=== PATIENT | male | born 1930 | race Caucasian/White ===

== ENCOUNTER 2019-07-16 16:32 | Inpatient (IN) | payer OTHER, MEDICARE ==
[2019-07-16] MEDS ORDERED: Sodium Chloride 0.9% 10 ML Syringe FLUSH PRN (16:54)
[2019-07-16] MEDS ORDERED: methylPREDNISolone Sodium Succinate 125 MG/2 ML SDV IVPUSH ONE (16:55)
[2019-07-16] MEDS ORDERED: Albuterol/Ipratropium 3.0-0.5 MG/3 ML Neb Soln NEB ONE ×2 (16:55→19:03)
--- NOTE | 2019-07-16 16:57 | EDM.PDOC ---
ED HPI GENERAL MEDICAL PROBLEM - General Chief Complaint: Respiratory Problem Stated Complaint: SOB Time Seen by Provider: 07/16/19 16:50 Source of Information: Reports: Patient History Limitations: Reports: No Limitations - History of Present Illness INITIAL COMMENTS - FREE TEXT/NARRATIVE: The patient presents with shortness of breath and a cough. He says this all started last night. He is coughing up some white phlegm at times. He has a history of asthma but he does not take anything and he has not had trouble with it for years. He has no fever or chest pain. He has no abdominal pain, nausea or vomiting. He has no swelling or pain in his feet. When he was brought back his oxygen saturations were 63%. He was put on oxygen and his saturations did come up. Onset: Gradual Duration: Day(s): (last night) Severity: Moderate Improves with: Reports: None Worsens with: Reports: None Associated Symptoms: Reports: Cough, Shortness of Breath. Denies: Chest Pain, Fever/Chills, Headaches, Nausea/Vomiting - Related Data Allergies Allergy/AdvReac Type Severity Reaction Status Date / Time No Known Allergies Allergy Verified 07/16/19 16:44 Past Medical History HEENT History: Reports: Hard of Hearing, Impaired Vision Cardiovascular History: Reports: Hypertension Respiratory History: Reports: Asthma Gastrointestinal History: Reports: GERD Other Musculoskeletal History: weakness Endocrine/Metabolic History: Reports: Diabetes, Type II Oncologic (Cancer) History: Reports: Colon - Past Surgical History GI Surgical History: Reports: Colonoscopy Other GI Surgeries/Procedures: colon cancer 2009 Social & Family History - Family History Family Medical History: Noncontributory - Tobacco Use Smoking Status *Q: Never Smoker - Caffeine Use Caffeine Use: Reports: Coffee - Recreational Drug Use Recreational Drug Use: No ED ROS GENERAL - Review of Systems Review Of Systems: See Below Constitutional: Reports: No Symptoms HEENT: Reports: No Symptoms Respiratory: Reports: Shortness of Breath, Cough Cardiovascular: Reports: No Symptoms Endocrine: Reports: No Symptoms GI/Abdominal: Reports: No Symptoms : Reports: No Symptoms Musculoskeletal: Reports: No Symptoms ED EXAM, GENERAL - Physical Exam Exam: See Below Exam Limited By: No Limitations General Appearance: Alert, No Apparent Distress Ears: Normal External Exam Nose: Normal Inspection Head: Atraumatic, Normocephalic Neck: Normal Inspection Respiratory/Chest: No Respiratory Distress, Decreased Breath Sounds, Wheezing Cardiovascular: Regular Rate, Rhythm, No Edema, No Murmur GI/Abdominal: Soft, Non-Tender, No Organomegaly, No Mass Back Exam: Normal Inspection Extremities: Normal Inspection EKG INTERPRETATION EKG Date: 07/16/19 Time: 18:28 Rhythm: NSR Rate (Beats/Min): 96 [place]: Normal P-Wave: Present QRS: Normal ST-T: Normal QT: Normal EKG Interpretation Comments: Q waves in the anterior leads Course - Vital Signs Last Recorded V/S: Last Vital Signs Temp 99.0 F 07/16/19 16:40 Pulse 111 H 07/16/19 16:40 Resp 25 H 07/16/19 16:40 BP 170/89 H 07/16/19 16:40 Pulse Ox 86 L 07/16/19 19:15 - Orders/Labs/Meds Orders: Active Orders 24 hr Category Date Time Status Cardiac Monitoring [RC] . DIRECTED Care 07/16/19 16:54 Active EKG Documentation Completion [RC] STAT Care 07/16/19 16:54 Active Oxygen Therapy [RC] PRN Care 07/16/19 16:54 Active Peripheral IV Care [RC] . DIRECTED Care 07/16/19 16:54 Active RT Aerosol Therapy [RC] ASDIRECTED Care 07/16/19 16:55 Active RT Aerosol Therapy [RC] ASDIRECTED Care 07/16/19 19:03 Active ABG [BLOOD GAS ARTERIAL] [BG] Stat Lab 07/16/19 19:06 Ordered CULTURE BLOOD [BC] Stat Lab 07/16/19 17:16 Received CULTURE BLOOD [BC] Stat Lab 07/16/19 17:37 Received Sodium Chloride 0.9% [Saline Flush] Med 07/16/19 16:54 Active 10 ml FLUSH ASDIRECTED PRN cefTRIAXone [Rocephin] 2 gm Med 07/16/19 19:15 Active Sodium Chloride 0.9% [Normal Saline] 100 ml IV Q24H Blood Culture x2 Reflex Set [OM.PC] Stat Oth 07/16/19 16:55 Ordered Peripheral IV Insertion Adult [OM.PC] Stat Oth 07/16/19 16:54 Ordered Medication Orders Ceftriaxone Sodium 2 gm/ (Sodium Chloride) 100 mls @ 200 mls/hr IV Q24H CADEN Last Admin: 02/01/20 19:11 Dose: 200 mls/hr Sodium Chloride (Saline Flush) 10 ml FLUSH ASDIRECTED PRN PRN Reason: Keep Vein Open Last Admin: 07/16/19 17:19 Dose: 10 ml Labs: Laboratory Tests 07/16/19 07/16/19 07/16/19 Range/Units 17:16 17:37 17:37 WBC (4.23-9.07) K/mm3 RBC (4.63-6.08) M/mm3 Hgb (13.7-17.5) gm/dl Hct (40.1-51.0) % MCV (79.0-92.2) fl MCH (25.7-32.2) pg MCHC (32.2-35.5) g/dl RDW Std Deviation (35.1-43.9) fL Plt Count (163-337) K/mm3 MPV (9.4-12.3) fl Neut % (Auto) (34.0-67.9) % Lymph % (Auto) (21.8-53.1) % [place] % (Auto) (5.3-12.2) % Eos % (Auto) (0.8-7.0) Baso % (Auto) (0.1-1.2) % Neut # (Auto) (1.78-5.38) K/mm3 Lymph # (Auto) (1.32-3.57) K/mm3 [place] # (Auto) (0.30-0.82) K/mm3 Eos # (Auto) (0.04-0.54) K/mm3 Baso # (Auto) (0.01-0.08) K/mm3 Sodium 137 (136-145) mEq/L Potassium 4.0 (3.5-5.1) mEq/L Chloride 98 (98-107) mEq/L Carbon Dioxide 36 H (21-32) mEq/L Anion Gap 7.0 (5-15) BUN 15 (7-18) mg/dL Creatinine 1.1 (0.7-1.3) mg/dL Est Cr Clr Drug Dosing 50.39 mL/min Estimated GFR (MDRD) > 60 (>60) mL/min BUN/Creatinine Ratio 13.6 L (14-18) Glucose 155 H (83-115) mg/dL Lactic Acid 1.4 (0.4-2.0) mmol/L Calcium 8.7 (8.5-10.1) mg/dL Total Bilirubin 1.1 H (0.2-1.0) mg/dL AST 21 (15-37) U/L ALT 25 (16-63) U/L Alkaline Phosphatase 65 (46-116) U/L Troponin I < 0.017 (0.00-0.056) ng/mL C-Reactive Protein 3.9 H* (<1.0) mg/dL NT-Pro-B Natriuret Pep 421 (0-450) pg/mL Total Protein 8.0 (6.4-8.2) g/dl Albumin 3.7 (3.4-5.0) g/dl Globulin 4.3 gm/dL Albumin/Globulin Ratio 0.9 L (1-2) 07/16/19 Range/Units 18:07 WBC 8.37 (4.23-9.07) K/mm3 RBC 4.60 L (4.63-6.08) M/mm3 Hgb 14.6 (13.7-17.5) gm/dl Hct 44.4 (40.1-51.0) % MCV 96.5 H D (79.0-92.2) fl MCH 31.7 (25.7-32.2) pg MCHC 32.9 (32.2-35.5) g/dl RDW Std Deviation 45.8 H (35.1-43.9) fL Plt Count 232 (163-337) K/mm3 MPV 9.2 L (9.4-12.3) fl Neut % (Auto) 79.3 H (34.0-67.9) % Lymph % (Auto) 12.9 L (21.8-53.1) % [place] % (Auto) 6.5 (5.3-12.2) % Eos % (Auto) 0.5 L (0.8-7.0) Baso % (Auto) 0.4 (0.1-1.2) % Neut # (Auto) 6.65 H (1.78-5.38) K/mm3 Lymph # (Auto) 1.08 L (1.32-3.57) K/mm3 [place] # (Auto) 0.54 (0.30-0.82) K/mm3 Eos # (Auto) 0.04 (0.04-0.54) K/mm3 Baso # (Auto) 0.03 (0.01-0.08) K/mm3 Sodium (136-145) mEq/L Potassium (3.5-5.1) mEq/L Chloride (98-107) mEq/L Carbon Dioxide (21-32) mEq/L Anion Gap (5-15) BUN (7-18) mg/dL Creatinine (0.7-1.3) mg/dL Est Cr Clr Drug Dosing mL/min Estimated GFR (MDRD) (>60) mL/min BUN/Creatinine Ratio (14-18) Glucose (83-115) mg/dL Lactic Acid (0.4-2.0) mmol/L Calcium (8.5-10.1) mg/dL Total Bilirubin (0.2-1.0) mg/dL AST (15-37) U/L ALT (16-63) U/L Alkaline Phosphatase (46-116) U/L Troponin I (0.00-0.056) ng/mL C-Reactive Protein (<1.0) mg/dL NT-Pro-B Natriuret Pep (0-450) pg/mL Total Protein (6.4-8.2) g/dl Albumin (3.4-5.0) g/dl Globulin gm/dL Albumin/Globulin Ratio (1-2) Meds: Medications Generic Name Dose Route Start Last Admin Trade Name Freq PRN Reason Stop Dose Admin Ceftriaxone Sodium 2 gm/ 100 mls @ 200 mls/hr 07/16/19 19:15 07/16/19 19:11 Sodium Chloride IV 200 mls/hr Q24H CADEN Administration Sodium Chloride 10 ml 07/16/19 16:54 07/16/19 17:19 Saline Flush FLUSH 10 ml ASDIRECTED PRN Administration Keep Vein Open Discontinued Medications Generic Name Dose Route Start Last Admin Trade Name Freq PRN Reason Stop Dose Admin Albuterol/Ipratropium 3 ml 07/16/19 16:55 07/16/19 17:04 Duoneb 3.0-0.5 Mg/3 Ml NEB 07/16/19 16:56 3 ml ONETIME ONE Administration Albuterol/Ipratropium 3 ml 07/16/19 19:03 07/16/19 19:14 Duoneb 3.0-0.5 Mg/3 Ml NEB 07/16/19 19:04 3 ml ONETIME ONE Administration Magnesium Sulfate/Dextrose 1 100 mls @ 100 mls/hr 07/16/19 16:56 07/16/19 17: 25 gm/ Premix IV 07/16/19 17:55 100 mls/hr ONETIME ONE Administration Methylprednisolone Sodium Succinate 125 mg 07/16/19 16:55 07/16/19 17:18 Solu-Medrol IVPUSH 07/16/19 16:56 125 mg ONETIME ONE Administration - Re-Assessments/Exams Free Text/Narrative Re-Assessment/Exam: 07/16/19 19:24 I ordered an IV saline lock, oxygen, duoneb, solu-medrol 125mg IV, labs, CXR, EKG, magnesium 1gram IV, blood cultures, lactic acid and rocephin 2 grams IV. His CXR does not show anything acute. His CBC looks good. His EKG shows no acute changes. His glucose is 155. His lactic acid is normal at 1.4. His total bili is elevated at 1.1. His troponin is negative. His CRP is elevated at 3.9. His BNP is normal 07/16/19 19:28 He was doing better. I listened to his lungs again and he has more wheezing and his lungs are tight. I ordered another duoneb and I will get an ABG. I feel he needs to be admitted. I talked with Dr Hi and he agreed to the admission. Departure - Departure Time of Disposition: 19:30 Disposition: Admitted As Inpatient 68 Condition: Serious Clinical Impression: Hypoxia Pneumonia Qualifiers: Pneumonia type: due to unspecified organism Laterality: unspecified laterality Lung location: unspecified part of lung Qualified Code(s): J18.9 - Pneumonia, unspecified organism Asthma exacerbation Qualifiers: Asthma severity: severe Asthma persistence: persistent Qualified Code(s): J45.51 - Severe persistent asthma with (acute) exacerbation - Discharge Information Referrals: Micah Langley MD [Primary Care Provider] - Forms: ED Department Discharge Sepsis Event Note - Evaluation Sepsis Screening Result: Possible Sepsis Risk - Focused Exam Vital Signs: Vital Signs Temp Pulse Resp BP Pulse Ox Pulse Ox 07/16/19 19:15 86 L 07/16/19 17:05 94 L 07/16/19 16:40 99.0 F 111 H 25 H 170/89 H 77 L Date Exam was Performed: 07/16/19 Time Exam was Performed: 19:27 - My Orders Last 24 Hours: My Active Orders 07/16/19 16:54 Cardiac Monitoring [RC] . DIRECTED EKG Documentation Completion [RC] STAT Oxygen Therapy [RC] PRN Peripheral IV Care [RC] . DIRECTED Sodium Chloride 0.9% [Saline Flush] 10 ml FLUSH ASDIRECTED PRN Peripheral IV Insertion Adult [OM.PC] Stat 07/16/19 16:55 RT Aerosol Therapy [RC] ASDIRECTED Blood Culture x2 Reflex Set [OM.PC] Stat 07/16/19 17:16 CULTURE BLOOD [BC] Stat 07/16/19 17:37 CULTURE BLOOD [BC] Stat 07/16/19 19:03 RT Aerosol Therapy [RC] ASDIRECTED 07/16/19 19:06 ABG [BLOOD GAS ARTERIAL] [BG] Stat 07/16/19 19:15 cefTRIAXone [Rocephin] 2 gm Sodium Chloride 0.9% [Normal Saline] 100 ml IV Q24H - Assessment/Plan Last 24 Hours: My Active Orders 07/16/19 16:54 Cardiac Monitoring [RC] . DIRECTED EKG Documentation Completion [RC] STAT Oxygen Therapy [RC] PRN Peripheral IV Care [RC] . DIRECTED Sodium Chloride 0.9% [Saline Flush] 10 ml FLUSH ASDIRECTED PRN Peripheral IV Insertion Adult [OM.PC] Stat 07/16/19 16:55 RT Aerosol Therapy [RC] ASDIRECTED Blood Culture x2 Reflex Set [OM.PC] Stat 07/16/19 17:16 CULTURE BLOOD [BC] Stat 07/16/19 17:37 CULTURE BLOOD [BC] Stat 07/16/19 19:03 RT Aerosol Therapy [RC] ASDIRECTED 07/16/19 19:06 ABG [BLOOD GAS ARTERIAL] [BG] Stat 07/16/19 19:15 cefTRIAXone [Rocephin] 2 gm Sodium Chloride 0.9% [Normal Saline] 100 ml IV Q24H
--- NOTE | 2019-07-16 18:40 | CR ---
Chest: Portable view of the chest was obtained. Comparison: Prior chest x-ray of 03/14/15. Lobulated left hemidiaphragm is seen. Bibasilar lung markings are mildly increased which appear to be chronic. Small nodule compatible with granuloma is seen within the right midlung. No acute parenchymal change is otherwise seen. Bony structures are grossly intact. Heart size is normal. Tortuous thoracic aorta is seen. Impression: 1. Findings as noted above. 2. Nothing acute is appreciated. Diagnostic code #2 Study was dictated in [place] Standard Time
[2019-07-16] MEDS: cefTRIAXone 2 GM in Sodium Chloride 0.9% 100 ML IV SCH (19:11)
--- NOTE | 2019-07-16 22:12 | PCM.HP.2 ---
H&P History of Present Illness - General Date of Service: 07/16/19 Admit Problem/Dx: Admission Diagnosis/Problem Admission Diagnosis/Problem Hypoxia - History of Present Illness Initial Comments - Free Text/Narative: Patient presented to the emergency room with a chief complaint of difficulty breathing. He states that he could not breathe yesterday and started developing a whitish productive cough. He has a history of some kind of reactive airway disease, but has not had any issues for years and is not taking any medication or inhalers for it. He denies any fever or chills. He stopped smoking 20 years ago and had a [id number] history. When he presented to the emergency room he had oxygen saturations of 63%. Denies any chest pain, orthopnea, or PND. He recently had injections in his eye but he does not know the name of the condition. Patient denies any recent weight gain or loss. Denies any close contacts with respiratory infections. In the emergency room chest x-ray showed nothing acute. A lobulated left hemidiaphragm was seen and bibasilar lung markings that are mildly increased which appear to be chronic. Nebulizers and oxygen improved his oxygenation and symptoms. White blood cell count was 8.37 with a C-reactive protein of 3.9. proBNP was normal at 421. Lactic acid was 1.4. Patient was treated with Rocephin and transferred to the floor on 4 L nasal cannula. - Related Data Allergies/Adverse Reactions: Allergies Allergy/AdvReac Type Severity Reaction Status Date / Time No Known Allergies Allergy Verified 07/16/19 20:38 Home Medications: Home Meds Aspirin [Adult Low Dose Aspirin EC] 81 mg PO DAILY 07/16/19 [History] Cholecalciferol (Vitamin D3) [Vitamin D3] 2,000 unit PO DAILY 07/16/19 [History] Cyanocobalamin (Vitamin B-12) [Vitamin B-12] 2,500 mcg PO DAILY 07/16/19 [ History] Gabapentin [Neurontin] 300 mg PO TID 07/16/19 [History] Losartan [Cozaar] 100 mg PO DAILY 07/16/19 [History] Omeprazole 20 mg PO DAILY 07/16/19 [History] hydroCHLOROthiazide [Hydrochlorothiazide] 25 mg PO DAILY 07/16/19 [History] metFORMIN [Glucophage] 500 mg PO BIDMEALS 07/16/19 [History] Propylene Glycol/Peg 400 [Lubricant 0.3%-0.4% Eye Drops] 1 drop EYEBOTH BID 08/04 [History] Past Medical History HEENT History: Reports: Hard of Hearing, Impaired Vision, Other (See Below) Other HEENT History: wears glasses and has bilateral hearing aides, had a shot last weak in the left eye to help improve his vision. Cardiovascular History: Reports: Hypertension Respiratory History: Reports: Asthma Gastrointestinal History: Reports: GERD Other Musculoskeletal History: weakness Endocrine/Metabolic History: Reports: Diabetes, Type II Oncologic (Cancer) History: Reports: Colon, Other (See Below) Other Oncologic History: left cheek had skin cancer removed from Dermatologic History: Reports: Other (See Below) Other Dermatologic History: had skin cancer removed to his left cheek - Infectious Disease History Infectious Disease History: Reports: Influenza Other Infectious Disease History: pt states he doesn't remember if he has ever had the measles or chicken pox, etc. - Past Surgical History HEENT Surgical History: Reports: None Cardiovascular Surgical History: Reports: None GI Surgical History: Reports: Colonoscopy Other GI Surgeries/Procedures: colon cancer 2010 Endocrine Surgical History: Reports: None Social & Family History - Family History Family Medical History: Noncontributory - Tobacco Use Smoking Status *Q: Never Smoker - Caffeine Use Caffeine Use: Reports: Coffee - Recreational Drug Use Recreational Drug Use: No H&P Review of Systems - Review of Systems: Review Of Systems: Comprehensive ROS is negative, except as noted in HPI. Exam - Exam Exam: See Below - Vital Signs Vital Signs: Last Vital Signs Temp 99.0 F 07/16/19 16:40 Pulse 111 H 07/16/19 16:40 Resp 25 H 07/16/19 16:40 BP 170/89 H 07/16/19 16:40 Pulse Ox 86 L 07/16/19 19:15 Weight: 230 lb 4.8 oz - Exam General: Alert, Oriented, 4 HEENT: Conjunctiva Clear, Mucosa Moist & [place]. No: Hearing Intact (Hard of hearing) Neck: Supple, Trachea Midline, 2 Lungs: Normal Respiratory Effort (Increased respiratory rate and mild increase in effort), Wheezing (Bibasilar ) Cardiovascular: Regular Rate, Regular Rhythm GI/Abdominal Exam: Normal Bowel Sounds, Soft, Non-Tender, No Organomegaly, No Distention Back Exam: Normal Inspection Extremities: Normal Inspection, Normal Range of Motion, Non-Tender, No Pedal Edema Skin: Warm, Dry, Intact Neurological: Cranial Nerves Intact Neuro Extensive - Mental Status: Alert, Oriented x3, Normal Mood/Affect, Normal Cognition, Memory Intact Neuro Extensive - Motor, Sensory, Reflexes: CN II-XII Intact Psychiatric: Alert, Normal Affect, Normal Mood - Patient Data Lab Results Last 24 hrs: Laboratory Results - last 24 hr 07/16/19 07/16/19 07/16/19 Range/Units 17:16 17:37 17:37 WBC (4.23-9.07) K/mm3 RBC (4.63-6.08) M/mm3 Hgb (13.7-17.5) gm/dl Hct (40.1-51.0) % MCV (79.0-92.2) fl MCH (25.7-32.2) pg MCHC (32.2-35.5) g/dl RDW Std Deviation (35.1-43.9) fL Plt Count (163-337) K/mm3 MPV (9.4-12.3) fl Neut % (Auto) (34.0-67.9) % Lymph % (Auto) (21.8-53.1) % [place] % (Auto) (5.3-12.2) % Eos % (Auto) (0.8-7.0) Baso % (Auto) (0.1-1.2) % Neut # (Auto) (1.78-5.38) K/mm3 Lymph # (Auto) (1.32-3.57) K/mm3 [place] # (Auto) (0.30-0.82) K/mm3 Eos # (Auto) (0.04-0.54) K/mm3 Baso # (Auto) (0.01-0.08) K/mm3 Puncture Site ABG pH (7.35-7.45) ABG pCO2 (35.0-45.0) mmHg ABG pO2 (80.0-100.0) mmHg ABG HCO3 (22.0-26.0) meq/L ABG O2 Saturation (96.0-97.0) % ABG Base Excess (-2-2.0) A-a Gradient mmHg O2 Delivery Device Oxygen Flow Rate FiO2 (21.00-100.00) % Sodium 137 (136-145) mEq/L Potassium 4.0 (3.5-5.1) mEq/L Chloride 98 (98-107) mEq/L Carbon Dioxide 36 H (21-32) mEq/L Anion Gap 7.0 (5-15) BUN 15 (7-18) mg/dL Creatinine 1.1 (0.7-1.3) mg/dL Est Cr Clr Drug Dosing 50.39 mL/min Estimated GFR (MDRD) > 60 (>60) mL/min BUN/Creatinine Ratio 13.6 L (14-18) Glucose 155 H (83-115) mg/dL Lactic Acid 1.4 (0.4-2.0) mmol/L Calcium 8.7 (8.5-10.1) mg/dL Total Bilirubin 1.1 H (0.2-1.0) mg/dL AST 21 (15-37) U/L ALT 25 (16-63) U/L Alkaline Phosphatase 65 (46-116) U/L Troponin I < 0.017 (0.00-0.056) ng/mL C-Reactive Protein 3.9 H* (<1.0) mg/dL NT-Pro-B Natriuret Pep 421 (0-450) pg/mL Total Protein 8.0 (6.4-8.2) g/dl Albumin 3.7 (3.4-5.0) g/dl Globulin 4.3 gm/dL Albumin/Globulin Ratio 0.9 L (1-2) 07/16/19 07/16/19 Range/Units 18:07 19:25 WBC 8.37 (4.23-9.07) K/mm3 RBC 4.60 L (4.63-6.08) M/mm3 Hgb 14.6 (13.7-17.5) gm/dl Hct 44.4 (40.1-51.0) % MCV 96.5 H D (79.0-92.2) fl MCH 31.7 (25.7-32.2) pg MCHC 32.9 (32.2-35.5) g/dl RDW Std Deviation 45.8 H (35.1-43.9) fL Plt Count 232 (163-337) K/mm3 MPV 9.2 L (9.4-12.3) fl Neut % (Auto) 79.3 H (34.0-67.9) % Lymph % (Auto) 12.9 L (21.8-53.1) % [place] % (Auto) 6.5 (5.3-12.2) % Eos % (Auto) 0.5 L (0.8-7.0) Baso % (Auto) 0.4 (0.1-1.2) % Neut # (Auto) 6.65 H (1.78-5.38) K/mm3 Lymph # (Auto) 1.08 L (1.32-3.57) K/mm3 [place] # (Auto) 0.54 (0.30-0.82) K/mm3 Eos # (Auto) 0.04 (0.04-0.54) K/mm3 Baso # (Auto) 0.03 (0.01-0.08) K/mm3 Puncture Site Lt radial ABG pH 7.40 (7.35-7.45) ABG pCO2 57.3 H (35.0-45.0) mmHg ABG pO2 54.0 L (80.0-100.0) mmHg ABG HCO3 34.5 H (22.0-26.0) meq/L ABG O2 Saturation 87.3 L (96.0-97.0) % ABG Base Excess 8.0 H (-2-2.0) A-a Gradient 103 mmHg O2 Delivery Device Cannula Oxygen Flow Rate 3.0 FiO2 32.00 (21.00-100.00) % Sodium (136-145) mEq/L Potassium (3.5-5.1) mEq/L Chloride (98-107) mEq/L Carbon Dioxide (21-32) mEq/L Anion Gap (5-15) BUN (7-18) mg/dL Creatinine (0.7-1.3) mg/dL Est Cr Clr Drug Dosing mL/min Estimated GFR (MDRD) (>60) mL/min BUN/Creatinine Ratio (14-18) Glucose (83-115) mg/dL Lactic Acid (0.4-2.0) mmol/L Calcium (8.5-10.1) mg/dL Total Bilirubin (0.2-1.0) mg/dL AST (15-37) U/L ALT (16-63) U/L Alkaline Phosphatase (46-116) U/L Troponin I (0.00-0.056) ng/mL C-Reactive Protein (<1.0) mg/dL NT-Pro-B Natriuret Pep (0-450) pg/mL Total Protein (6.4-8.2) g/dl Albumin (3.4-5.0) g/dl Globulin gm/dL Albumin/Globulin Ratio (1-2) Result Diagrams: 07/17/19 04:35 07/17/19 04:35 [place] Results Last 24 hrs: Microbiology 07/16/19 17:30 Influenza Type A Antigen Screen - Final Nasopharyngeal Swab NEGATIVE INFLUENZA A VIRUS AG REFERENCE RANGE: NEGATIVE Influenza Type B Antigen Screen - Final NEGATIVE INFLUENZA B VIRUS AG REFERENCE RANGE: NEGATIVE Sepsis Event Note - Evaluation Sepsis Screening Result: Possible Sepsis Risk - Focused Exam Vital Signs: Vital Signs Temp Pulse Resp BP Pulse Ox Pulse Ox 07/16/19 19:15 86 L 07/16/19 17:05 94 L 07/16/19 16:40 99.0 F 111 H 25 H 170/89 H 77 L Date Exam was Performed: 07/17/19 Time Exam was Performed: 13:52 Problem List Initiated/Reviewed/Updated: Yes Orders Last 24hrs: Active Orders 24 hr Category Date Time Status Admission Status [Patient Status] [ADT] Routine ADT 07/16/19 19:36 Active Cardiac Monitoring [RC] . DIRECTED Care 07/16/19 16:54 Active Oxygen Therapy [RC] PRN Care 07/16/19 16:54 Active Peripheral IV Care [RC] . DIRECTED Care 07/16/19 16:54 Active CULTURE BLOOD [BC] Stat Lab 07/16/19 17:16 Received CULTURE BLOOD [BC] Stat Lab 07/16/19 17:37 Received Sodium Chloride 0.9% [Saline Flush] Med 07/16/19 16:54 Active 10 ml FLUSH ASDIRECTED PRN cefTRIAXone [Rocephin] 2 gm Med 07/16/19 19:15 Active Sodium Chloride 0.9% [Normal Saline] 100 ml IV Q24H Blood Culture x2 Reflex Set [OM.PC] Stat Oth 07/16/19 16:55 Ordered Peripheral IV Insertion Adult [OM.PC] Stat Oth 07/16/19 16:54 Ordered Medication Orders Ceftriaxone Sodium 2 gm/ (Sodium Chloride) 100 mls @ 200 mls/hr IV Q24H [facility] [place] Last Admin: 07/16/19 19:11 Dose: 200 mls/hr Sodium Chloride (Saline Flush) 10 ml FLUSH ASDIRECTED PRN PRN Reason: Keep Vein Open Last Admin: 07/16/19 17:19 Dose: 10 ml Assessment/Plan Comment:: Assessment * Bronchitis with reactive airway disease and hypoxemia * Started on Rocephin in the emergency room. * Nothing acute on chest x-ray. * Normal CBC and lactic acid * Blood cultures drawn in the emergency room * Given Solu-Medrol 125 mg IV in the ER * Quit smoking 20 years ago, [id number] history prior * On 4 L nasal cannula * Type 2 diabetes * Controlled on Glucophage * No current hemoglobin A1c available * Hypertension * Blood pressure elevated on admission at 170/89 * Home meds: Losartan 100 mg daily and HCTZ 25 mg daily Plan * Admit to medical floor * DuoNeb every 6 hours * Albuterol every 2 hours as needed * Continue ceftriaxone * Start azithromycin * Monitor fingerstick blood sugar 4 times daily * Sliding scale insulin * Stop metformin * Incentive spirometry * FiO2 to keep SPO2 greater than 90% * Continue other home meds * VTE prophylaxis with Lovenox * CODE STATUS: Full code * Length of stay 2 to 3 days - Mortality Measure Prognosis:: Good
[2019-07-16] MEDS ORDERED: Acetaminophen 325 MG Tab PO PRN (22:14)
[2019-07-16] MEDS ORDERED: Albuterol 0.083% 2.5 MG/3 ML Neb Soln NEB PRN (22:14)
[2019-07-16] MEDS ORDERED: Azithromycin 500 MG in Sodium Chloride 0.9% 250 ML IV ONE (22:17)
[2019-07-16] MEDS ORDERED: Melatonin 3 MG Tab PO PRN (22:40)
[2019-07-16] MEDS: Albuterol/Ipratropium 3.0-0.5 MG/3 ML Neb Soln NEB SCH (22:42)
[2019-07-17] MEDS: Albuterol/Ipratropium 3.0-0.5 MG/3 ML Neb Soln NEB SCH ×8 (03:04→22:17)
[2019-07-17] MEDS: Pantoprazole 40 MG Tab.CR PO SCH ×2 (05:35→07:03)
[2019-07-17] MEDS: predniSONE 20 MG Tab PO SCH ×2 (05:35→07:03)
[2019-07-17] MEDS: Insulin Lispro 100 Units/ML 3 ML Vial SUBCUT SCH ×4 (08:28→22:10)
[2019-07-17] MEDS: Gabapentin 300 MG Cap PO SCH ×3 (08:36→22:09)
[2019-07-17] MEDS: Aspirin 81 MG Tab.EC PO SCH (08:36)
[2019-07-17] MEDS: Hydrochlorothiazide 25 MG Tab PO SCH (08:36)
[2019-07-17] MEDS: Losartan 100 MG Tab PO SCH (08:37)
[2019-07-17] MEDS: Insulin Glarg,Human.Rec.Analog 100 Unit/ML SUBCUT SCH (08:39)
[2019-07-17] MEDS: Enoxaparin 40 MG/0.4 ML Syringe SUBCUT SCH (08:40)
[2019-07-17] MEDS ORDERED: Carboxymethylcellulose Sodium 1% Ophth Gel 15 ML Bottle EYEBOTH ONE (11:30)
--- NOTE | 2019-07-17 14:13 | PCM.PN ---
- General Info Date of Service: 07/17/19 Admission Dx/Problem (Free Text): Admission Diagnosis/Problem Admission Diagnosis/Problem Hypoxia Subjective Update: Patient states he is feeling much better. Denies any fever or chills. - Review of Systems General: Reports: No Symptoms HEENT: Reports: No Symptoms Pulmonary: Reports: Shortness of Breath Cardiovascular: Reports: No Symptoms Gastrointestinal: Reports: No Symptoms Musculoskeletal: Reports: No Symptoms - Patient Data Vitals - Most Recent: Last Vital Signs Temp 97.9 F 07/17/19 08:40 Pulse 91 07/17/19 08:40 Resp 18 07/17/19 08:40 BP 139/73 07/17/19 08:40 Pulse Ox 93 L 07/17/19 09:25 Weight - Most Recent: 230 lb 4.8 oz I&O - Last 24 Hours: Intake & Output 07/16/19 07/17/19 07/17/19 22:59 06:59 14:59 Intake Total 410 343 Output Total 250 Balance 160 343 Lab Results Last 24 Hours: Laboratory Results - last 24 hr 07/16/19 07/16/19 07/16/19 Range/Units 17:16 17:37 17:37 WBC (4.23-9.07) K/mm3 RBC (4.63-6.08) M/mm3 Hgb (13.7-17.5) gm/dl Hct (40.1-51.0) % MCV (79.0-92.2) fl MCH (25.7-32.2) pg MCHC (32.2-35.5) g/dl RDW Std Deviation (35.1-43.9) fL Plt Count (163-337) K/mm3 MPV (9.4-12.3) fl Neut % (Auto) (34.0-67.9) % Lymph % (Auto) (21.8-53.1) % [place] % (Auto) (5.3-12.2) % Eos % (Auto) (0.8-7.0) Baso % (Auto) (0.1-1.2) % Neut # (Auto) (1.78-5.38) K/mm3 Lymph # (Auto) (1.32-3.57) K/mm3 [place] # (Auto) (0.30-0.82) K/mm3 Eos # (Auto) (0.04-0.54) K/mm3 Baso # (Auto) (0.01-0.08) K/mm3 Manual Slide Review Puncture Site ABG pH (7.35-7.45) ABG pCO2 (35.0-45.0) mmHg ABG pO2 (80.0-100.0) mmHg ABG HCO3 (22.0-26.0) meq/L ABG O2 Saturation (96.0-97.0) % ABG Base Excess (-2-2.0) A-a Gradient mmHg O2 Delivery Device Oxygen Flow Rate FiO2 (21.00-100.00) % Sodium 137 (136-145) mEq/L Potassium 4.0 (3.5-5.1) mEq/L Chloride 98 (98-107) mEq/L Carbon Dioxide 36 H (21-32) mEq/L Anion Gap 7.0 (5-15) BUN 15 (7-18) mg/dL Creatinine 1.1 (0.7-1.3) mg/dL Est Cr Clr Drug Dosing 50.39 mL/min Estimated GFR (MDRD) > 60 (>60) mL/min BUN/Creatinine Ratio 13.6 L (14-18) Glucose 155 H (83-115) mg/dL POC Glucose (83-110) mg/dL Lactic Acid 1.4 (0.4-2.0) mmol/L Calcium 8.7 (8.5-10.1) mg/dL Magnesium (1.8-2.4) mg/dl Total Bilirubin 1.1 H (0.2-1.0) mg/dL AST 21 (15-37) U/L ALT 25 (16-63) U/L Alkaline Phosphatase 65 (46-116) U/L Troponin I < 0.017 (0.00-0.056) ng/mL C-Reactive Protein 3.9 H* (<1.0) mg/dL NT-Pro-B Natriuret Pep 421 (0-450) pg/mL Total Protein 8.0 (6.4-8.2) g/dl Albumin 3.7 (3.4-5.0) g/dl Globulin 4.3 gm/dL Albumin/Globulin Ratio 0.9 L (1-2) 07/16/19 07/16/19 07/17/19 Range/Units 18:07 19:25 04:35 WBC 8.37 5.96 (4.23-9.07) K/mm3 RBC 4.60 L 4.46 L (4.63-6.08) M/mm3 Hgb 14.6 14.1 (13.7-17.5) gm/dl Hct 44.4 43.0 (40.1-51.0) % MCV 96.5 H D 96.4 H (79.0-92.2) fl MCH 31.7 31.6 (25.7-32.2) pg MCHC 32.9 32.8 (32.2-35.5) g/dl RDW Std Deviation 45.8 H 45.6 H (35.1-43.9) fL Plt Count 232 231 (163-337) K/mm3 MPV 9.2 L 9.7 (9.4-12.3) fl Neut % (Auto) 79.3 H 88.7 H (34.0-67.9) % Lymph % (Auto) 12.9 L 7.4 L (21.8-53.1) % [place] % (Auto) 6.5 3.2 L (5.3-12.2) % Eos % (Auto) 0.5 L 0 L (0.8-7.0) Baso % (Auto) 0.4 0.2 (0.1-1.2) % Neut # (Auto) 6.65 H 5.29 (1.78-5.38) K/mm3 Lymph # (Auto) 1.08 L 0.44 L (1.32-3.57) K/mm3 [place] # (Auto) 0.54 0.19 L (0.30-0.82) K/mm3 Eos # (Auto) 0.04 0.00 L (0.04-0.54) K/mm3 Baso # (Auto) 0.03 0.01 (0.01-0.08) K/mm3 Manual Slide Review Abnormal smear Puncture Site Lt radial ABG pH 7.40 (7.35-7.45) ABG pCO2 57.3 H (35.0-45.0) mmHg ABG pO2 54.0 L (80.0-100.0) mmHg ABG HCO3 34.5 H (22.0-26.0) meq/L ABG O2 Saturation 87.3 L (96.0-97.0) % ABG Base Excess 8.0 H (-2-2.0) A-a Gradient 103 mmHg O2 Delivery Device Cannula Oxygen Flow Rate 3.0 FiO2 32.00 (21.00-100.00) % Sodium (136-145) mEq/L Potassium (3.5-5.1) mEq/L Chloride (98-107) mEq/L Carbon Dioxide (21-32) mEq/L Anion Gap (5-15) BUN (7-18) mg/dL Creatinine (0.7-1.3) mg/dL Est Cr Clr Drug Dosing mL/min Estimated GFR (MDRD) (>60) mL/min BUN/Creatinine Ratio (14-18) Glucose (83-115) mg/dL POC Glucose (83-110) mg/dL Lactic Acid (0.4-2.0) mmol/L Calcium (8.5-10.1) mg/dL Magnesium (1.8-2.4) mg/dl Total Bilirubin (0.2-1.0) mg/dL AST (15-37) U/L ALT (16-63) U/L Alkaline Phosphatase (46-116) U/L Troponin I (0.00-0.056) ng/mL C-Reactive Protein (<1.0) mg/dL NT-Pro-B Natriuret Pep (0-450) pg/mL Total Protein (6.4-8.2) g/dl Albumin (3.4-5.0) g/dl Globulin gm/dL Albumin/Globulin Ratio (1-2) 07/17/19 07/17/19 Range/Units 04:35 06:33 WBC (4.23-9.07) K/mm3 RBC (4.63-6.08) M/mm3 Hgb (13.7-17.5) gm/dl Hct (40.1-51.0) % MCV (79.0-92.2) fl MCH (25.7-32.2) pg MCHC (32.2-35.5) g/dl RDW Std Deviation (35.1-43.9) fL Plt Count (163-337) K/mm3 MPV (9.4-12.3) fl Neut % (Auto) (34.0-67.9) % Lymph % (Auto) (21.8-53.1) % [place] % (Auto) (5.3-12.2) % Eos % (Auto) (0.8-7.0) Baso % (Auto) (0.1-1.2) % Neut # (Auto) (1.78-5.38) K/mm3 Lymph # (Auto) (1.32-3.57) K/mm3 [place] # (Auto) (0.30-0.82) K/mm3 Eos # (Auto) (0.04-0.54) K/mm3 Baso # (Auto) (0.01-0.08) K/mm3 Manual Slide Review Puncture Site ABG pH (7.35-7.45) ABG pCO2 (35.0-45.0) mmHg ABG pO2 (80.0-100.0) mmHg ABG HCO3 (22.0-26.0) meq/L ABG O2 Saturation (96.0-97.0) % ABG Base Excess (-2-2.0) A-a Gradient mmHg O2 Delivery Device Oxygen Flow Rate FiO2 (21.00-100.00) % Sodium 136 (136-145) mEq/L Potassium 4.0 (3.5-5.1) mEq/L Chloride 97 L (98-107) mEq/L Carbon Dioxide 31 (21-32) mEq/L Anion Gap 12.0 (5-15) BUN 20 H (7-18) mg/dL Creatinine 1.3 (0.7-1.3) mg/dL Est Cr Clr Drug Dosing 42.64 mL/min Estimated GFR (MDRD) 52 (>60) mL/min BUN/Creatinine Ratio 15.4 (14-18) Glucose 299 H (83-115) mg/dL POC Glucose 245 H (83-110) mg/dL Lactic Acid (0.4-2.0) mmol/L Calcium 8.4 L (8.5-10.1) mg/dL Magnesium 2.2 (1.8-2.4) mg/dl Total Bilirubin 0.5 (0.2-1.0) mg/dL AST 16 (15-37) U/L ALT 27 (16-63) U/L Alkaline Phosphatase 60 (46-116) U/L Troponin I (0.00-0.056) ng/mL C-Reactive Protein 4.9 H* (<1.0) mg/dL NT-Pro-B Natriuret Pep (0-450) pg/mL Total Protein 7.6 (6.4-8.2) g/dl Albumin 3.3 L (3.4-5.0) g/dl Globulin 4.3 gm/dL Albumin/Globulin Ratio 0.8 L (1-2) Mykel Results Last 24 Hours: Microbiology 07/16/19 17:30 Influenza Type A Antigen Screen - Final Nasopharyngeal Swab NEGATIVE INFLUENZA A VIRUS AG REFERENCE RANGE: NEGATIVE Influenza Type B Antigen Screen - Final NEGATIVE INFLUENZA B VIRUS AG REFERENCE RANGE: NEGATIVE Med Orders - Current: Current Medications Acetaminophen (Tylenol) 650 mg PO Q4H PRN PRN Reason: Pain (Mild 1-3)/fever Albuterol (Proventil Neb Soln) 2.5 mg NEB Q2H PRN PRN Reason: Shortness Of Breath/wheezing Last Admin: 07/17/19 00:27 Dose: 2.5 mg Albuterol/Ipratropium (Duoneb 3.0-0.5 Mg/3 Ml) 3 ml NEB Q6HRRT [facility] Last Admin: 07/17/19 09:24 Dose: 3 ml Artificial Tears (Refresh Liquigel 1%) 0 ml EYEBOTH BID [facility] Aspirin (Halfprin) 81 mg PO DAILY [facility] Last Admin: 07/17/19 08:36 Dose: 81 mg Enoxaparin Sodium (Lovenox) 40 mg SUBCUT DAILY [facility] Last Admin: 07/17/19 08:40 Dose: 40 mg Gabapentin (Neurontin) 300 mg PO TID [facility] Last Admin: 07/17/19 08:36 Dose: 300 mg Hydrochlorothiazide (Hydrochlorothiazide) 25 mg PO DAILY [facility] Last Admin: 07/17/19 08:36 Dose: 25 mg Ceftriaxone Sodium 2 gm/ (Sodium Chloride) 100 mls @ 200 mls/hr IV Q24H [facility] Last Admin: 07/16/19 19:11 Dose: 200 mls/hr Azithromycin 250 mg/ Sodium (Chloride) 250 mls @ 250 mls/hr IV Q24H [facility] Insulin Glargine (Lantus) 10 unit SUBCUT DAILY [facility] Last Admin: 07/17/19 08:39 Dose: 10 units Insulin Human Lispro (Humalog) 0 unit SUBCUT QIDACANDBED [facility]; Protocol Last Admin: 07/17/19 12:56 Dose: 2 units Losartan Potassium (Cozaar) 100 mg PO DAILY [facility] Last Admin: 07/17/19 08:37 Dose: 100 mg Melatonin (Melatonin) 9 mg PO BEDTIME PRN PRN Reason: Insomnia Pantoprazole Sodium (Protonix) 40 mg PO DAILY@0700 [facility] Last Admin: 07/17/19 07:03 Dose: Not Given Prednisone (Prednisone) 40 mg PO WITHBREAKFAST [facility] Last Admin: 07/17/19 07:03 Dose: Not Given Sodium Chloride (Saline Flush) 10 ml FLUSH ASDIRECTED PRN PRN Reason: Keep Vein Open Last Admin: 07/16/19 17:19 Dose: 10 ml Discontinued Medications Albuterol/Ipratropium (Duoneb 3.0-0.5 Mg/3 Ml) 3 ml NEB ONETIME ONE Stop: 07/16/19 16:56 Last Admin: 07/16/19 17:04 Dose: 3 ml Albuterol/Ipratropium (Duoneb 3.0-0.5 Mg/3 Ml) 3 ml NEB ONETIME ONE Stop: 07/16/19 19:04 Last Admin: 07/16/19 19:14 Dose: 3 ml Albuterol/Ipratropium (Duoneb 3.0-0.5 Mg/3 Ml) 3 ml NEB Q6H [facility] Last Admin: 07/17/19 11:30 Dose: Not Given Artificial Tears (Refresh Liquigel 1%) 0 ml EYEBOTH ONETIME ONE Stop: 07/17/19 11:31 Last Admin: 07/17/19 11:43 Dose: 1 drop Magnesium Sulfate/Dextrose 1 (gm/ Premix) 100 mls @ 100 mls/hr IV ONETIME ONE Stop: 07/16/19 17:55 Last Admin: 07/16/19 17:25 Dose: 100 mls/hr Azithromycin 500 mg/ Sodium (Chloride) 250 mls @ 250 mls/hr IV ONETIME ONE Stop: 07/16/19 23:16 Last Admin: 07/16/19 22:39 Dose: 250 mls/hr Methylprednisolone Sodium Succinate (Solu-Medrol) 125 mg IVPUSH ONETIME ONE Stop: 07/16/19 16:56 Last Admin: 07/16/19 17:18 Dose: 125 mg Non-Formulary Medication (Propylene Glycol/Peg 400 [Lubricant 0.3%-0.4% Eye Drops]) 15 ml EYEBOTH BID [facility] Last Admin: 07/17/19 11:31 Dose: Not Given - Exam Quality Assessment: Supplemental Oxygen General: Alert, Oriented HEENT: Pupils Equal, Mucous Membr. Moist/[place] Neck: Supple Lungs: Clear to Auscultation, Normal Respiratory Effort Cardiovascular: Regular Rate, Regular Rhythm GI/Abdominal Exam: Normal Bowel Sounds, Soft, Non-Tender, No Distention Back Exam: Normal Inspection Extremities: Normal Inspection, Normal Range of Motion, Non-Tender, No Pedal Edema, Normal Capillary Refill Skin: Warm, Dry, Intact Neurological: No New Focal Deficit Psy/Mental Status: Alert, Normal Affect, Normal Mood Sepsis Event Note - Evaluation Sepsis Screening Result: Possible Sepsis Risk - Focused Exam Vital Signs: Vital Signs Temp Pulse Resp BP Pulse Ox Pulse Ox 07/17/19 09:25 93 L 07/17/19 08:40 97.9 F 91 18 139/73 93 L 07/17/19 08:37 139/73 07/17/19 06:50 96 07/17/19 06:36 98 92 L 07/17/19 04:37 97.7 F 89 22 H 108/66 89 L 07/17/19 03:04 91 L Date Exam was Performed: 07/17/19 Time Exam was Performed: 14:09 - Problem List Review Problem List Initiated/Reviewed/Updated: Yes - My Orders Last 24 Hours: My Active Orders 07/16/19 22:13 Blood Glucose Check, Bedside [RC] QIDACANDBED 07/16/19 22:14 Up With Assistance [RC] ASDIRECTED VTE/DVT Education [RC] PER UNIT ROUTINE Vital Signs [RC] Q4HR Acetaminophen [Tylenol] 650 mg PO Q4H PRN Albuterol [Proventil Neb Soln] 2.5 mg NEB Q2H PRN Resuscitation Status Routine 07/16/19 22:16 RT Aerosol Therapy [RC] ASDIRECTED 07/16/19 22:40 Melatonin 9 mg PO BEDTIME PRN 07/16/19 23:27 Oxygen Therapy Adult [Oxygen Therapy] [RC] ASDIRECTED 07/17/19 00:50 RESPIRATORY PANEL Routine 07/17/19 03:00 Albuterol/Ipratropium [DuoNeb 3.0-0.5 MG/3 ML] 3 ml NEB Q6HRRT 07/17/19 07:00 Insulin Lispro [HumaLOG] See Protocol SUBCUT QIDACANDBED Pantoprazole [ProTONIX] 40 mg PO DAILY@0700 predniSONE 40 mg PO WITHBREAKFAST 07/17/19 09:00 Aspirin [Halfprin] 81 mg PO DAILY Enoxaparin [Lovenox] 40 mg SUBCUT DAILY Gabapentin [Neurontin] 300 mg PO TID Insulin Glarg,Human.Rec.Analog [LantUS] 10 unit SUBCUT DAILY Losartan [Cozaar] 100 mg PO DAILY hydroCHLOROthiazide 25 mg PO DAILY 07/17/19 21:00 Azithromycin [Zithromax] 250 mg Sodium Chloride 0.9% [Normal Saline] 250 ml IV Q24H Carboxymethylcellulose Sodium [Refresh Liquigel 1%] 0 ml EYEBOTH BID 07/17/19 Breakfast Consistent Carbohydrate Diet [DIET] 07/18/19 05:11 C-REACTIVE PROTEIN [CHEM] AM CBC WITH AUTO DIFF [HEME] AM COMPREHENSIVE METABOLIC PN,CMP [CHEM] AM GLYCOSYLATED HEMOGLOBIN,HGBA1C [CHEM] AM MAGNESIUM [CHEM] AM - Plan Plan:: Assessment * Bronchitis with reactive airway disease and hypoxemia * Rocephin and azithromycin * Nothing acute on chest x-ray. * Normal CBC and lactic acid * Blood cultures pending * Prednisone 40 mg daily * Quit smoking 20 years ago, [id number] history prior * On 4 L nasal cannula * Type 2 diabetes * Morning blood sugar was 299. This is likely secondary to steroids. * Holding metformin * Hypertension * Blood pressure elevated on admission at 170/89 * Home meds: Losartan 100 mg daily and HCTZ 25 mg daily, Plan * Admit to medical floor * DuoNeb every 6 hours * Albuterol every 2 hours as needed * Continue ceftriaxone and azithromycin * Prednisone 40 mg daily * Start Lantus 10 units daily * Monitor fingerstick blood sugar 4 times daily * Sliding scale insulin * Incentive spirometry continued * FiO2 to keep SPO2 greater than 90% * VTE prophylaxis with Lovenox * CODE STATUS: Full code * Length of stay 2 to 3 days
[2019-07-17] MEDS ORDERED: Azithromycin 250 MG in Sodium Chloride 0.9% 250 ML IV SCH (21:00)
[2019-07-17] MEDS ORDERED: Azithromycin 500 MG Vial ONE (21:53)
[2019-07-17] MEDS: cefTRIAXone 2 GM in Sodium Chloride 0.9% 100 ML IV SCH (22:08)
[2019-07-17] MEDS: Carboxymethylcellulose Sodium 1% Ophth Gel 15 ML Bottle EYEBOTH SCH (22:09)
[2019-07-18] MEDS: Albuterol/Ipratropium 3.0-0.5 MG/3 ML Neb Soln NEB SCH ×4 (03:35→20:30)
[2019-07-18] MEDS: predniSONE 20 MG Tab PO SCH (06:56)
[2019-07-18] MEDS: Insulin Lispro 100 Units/ML 3 ML Vial SUBCUT SCH ×4 (06:56→21:01)
[2019-07-18] MEDS: Pantoprazole 40 MG Tab.CR PO SCH (06:57)
[2019-07-18 07:02] LABS: HEMOGLOBIN A1C 6.7 % (4.50-6.20)
[2019-07-18] MEDS: Hydrochlorothiazide 25 MG Tab PO SCH (08:55)
[2019-07-18] MEDS: Aspirin 81 MG Tab.EC PO SCH (08:56)
[2019-07-18] MEDS: Gabapentin 300 MG Cap PO SCH ×3 (08:56→20:52)
[2019-07-18] MEDS: Losartan 100 MG Tab PO SCH (08:57)
[2019-07-18] MEDS: Insulin Glarg,Human.Rec.Analog 100 Unit/ML SUBCUT SCH (08:59)
[2019-07-18] MEDS: Carboxymethylcellulose Sodium 1% Ophth Gel 15 ML Bottle EYEBOTH SCH ×2 (08:59→20:52)
[2019-07-18] MEDS: Enoxaparin 40 MG/0.4 ML Syringe SUBCUT SCH (09:00)
--- NOTE | 2019-07-18 13:52 | PCM.PN ---
- General Info Date of Service: 07/18/19 Admission Dx/Problem (Free Text): Admission Diagnosis/Problem Admission Diagnosis/Problem Hypoxia Subjective Update: Patient continues to improve. He denies any fever or chills. Continues on 1 L nasal cannula. Functional Status: Reports: Pain Controlled - Review of Systems General: Reports: No Symptoms HEENT: Reports: No Symptoms Pulmonary: Reports: Cough Cardiovascular: Reports: No Symptoms Gastrointestinal: Reports: No Symptoms Musculoskeletal: Reports: No Symptoms - Patient Data Vitals - Most Recent: Last Vital Signs Temp 98.1 F 07/18/19 11:15 Pulse 79 07/18/19 11:15 Resp 24 H 07/18/19 11:15 BP 123/79 07/18/19 11:15 Pulse Ox 95 07/18/19 11:15 Weight - Most Recent: 228 lb 4.8 oz I&O - Last 24 Hours: Intake & Output 07/17/19 07/18/19 07/18/19 22:59 06:59 14:59 Intake Total 440 1250 400 Output Total 750 1100 Balance -310 150 400 Lab Results Last 24 Hours: Laboratory Results - last 24 hr 07/17/19 07/17/19 07/17/19 Range/Units 11:41 18:12 22:04 WBC (4.23-9.07) K/mm3 RBC (4.63-6.08) M/mm3 Hgb (13.7-17.5) gm/dl Hct (40.1-51.0) % MCV (79.0-92.2) fl MCH (25.7-32.2) pg MCHC (32.2-35.5) g/dl RDW Std Deviation (35.1-43.9) fL Plt Count (163-337) K/mm3 MPV (9.4-12.3) fl Neut % (Auto) (34.0-67.9) % Lymph % (Auto) (21.8-53.1) % [place] % (Auto) (5.3-12.2) % Eos % (Auto) (0.8-7.0) Baso % (Auto) (0.1-1.2) % Neut # (Auto) (1.78-5.38) K/mm3 Lymph # (Auto) (1.32-3.57) K/mm3 [place] # (Auto) (0.30-0.82) K/mm3 Eos # (Auto) (0.04-0.54) K/mm3 Baso # (Auto) (0.01-0.08) K/mm3 Manual Slide Review Sodium (136-145) mEq/L Potassium (3.5-5.1) mEq/L Chloride (98-107) mEq/L Carbon Dioxide (21-32) mEq/L Anion Gap (5-15) BUN (7-18) mg/dL Creatinine (0.7-1.3) mg/dL Est Cr Clr Drug Dosing mL/min Estimated GFR (MDRD) (>60) mL/min BUN/Creatinine Ratio (14-18) Glucose (83-115) mg/dL POC Glucose 202 H 230 H 115 H (83-110) mg/dL Hemoglobin A1c (4.50-6.20) % Calcium (8.5-10.1) mg/dL Magnesium (1.8-2.4) mg/dl Total Bilirubin (0.2-1.0) mg/dL AST (15-37) U/L ALT (16-63) U/L Alkaline Phosphatase (46-116) U/L C-Reactive Protein (<1.0) mg/dL Total Protein (6.4-8.2) g/dl Albumin (3.4-5.0) g/dl Globulin gm/dL Albumin/Globulin Ratio (1-2) 07/18/19 07/18/19 07/18/19 Range/Units 05:50 05:50 05:50 WBC 11.63 H (4.23-9.07) K/mm3 RBC 4.48 L (4.63-6.08) M/mm3 Hgb 14.1 (13.7-17.5) gm/dl Hct 43.3 (40.1-51.0) % MCV 96.7 H (79.0-92.2) fl MCH 31.5 (25.7-32.2) pg MCHC 32.6 (32.2-35.5) g/dl RDW Std Deviation 45.1 H (35.1-43.9) fL Plt Count 242 (163-337) K/mm3 MPV 9.8 (9.4-12.3) fl Neut % (Auto) 78.1 H (34.0-67.9) % Lymph % (Auto) 13.4 L (21.8-53.1) % [place] % (Auto) 7.9 (5.3-12.2) % Eos % (Auto) 0.2 L (0.8-7.0) Baso % (Auto) 0.2 (0.1-1.2) % Neut # (Auto) 9.09 H (1.78-5.38) K/mm3 Lymph # (Auto) 1.56 (1.32-3.57) K/mm3 [place] # (Auto) 0.92 H (0.30-0.82) K/mm3 Eos # (Auto) 0.02 L (0.04-0.54) K/mm3 Baso # (Auto) 0.02 (0.01-0.08) K/mm3 Manual Slide Review Abnormal smear Sodium 139 (136-145) mEq/L Potassium 4.0 (3.5-5.1) mEq/L Chloride 100 (98-107) mEq/L Carbon Dioxide 35 H (21-32) mEq/L Anion Gap 8.0 (5-15) BUN 26 H (7-18) mg/dL Creatinine 1.1 (0.7-1.3) mg/dL Est Cr Clr Drug Dosing 50.39 mL/min Estimated GFR (MDRD) > 60 (>60) mL/min BUN/Creatinine Ratio 23.6 H (14-18) Glucose 137 H (83-115) mg/dL POC Glucose (83-110) mg/dL Hemoglobin A1c 6.70 H (4.50-6.20) % Calcium 8.5 (8.5-10.1) mg/dL Magnesium 2.1 (1.8-2.4) mg/dl Total Bilirubin 0.4 (0.2-1.0) mg/dL AST 16 (15-37) U/L ALT 27 (16-63) U/L Alkaline Phosphatase 53 (46-116) U/L C-Reactive Protein 2.7 H* (<1.0) mg/dL Total Protein 7.4 (6.4-8.2) g/dl Albumin 3.2 L (3.4-5.0) g/dl Globulin 4.2 gm/dL Albumin/Globulin Ratio 0.8 L (1-2) 07/18/19 07/18/19 Range/Units 06:56 11:14 WBC (4.23-9.07) K/mm3 RBC (4.63-6.08) M/mm3 Hgb (13.7-17.5) gm/dl Hct (40.1-51.0) % MCV (79.0-92.2) fl MCH (25.7-32.2) pg MCHC (32.2-35.5) g/dl RDW Std Deviation (35.1-43.9) fL Plt Count (163-337) K/mm3 MPV (9.4-12.3) fl Neut % (Auto) (34.0-67.9) % Lymph % (Auto) (21.8-53.1) % [place] % (Auto) (5.3-12.2) % Eos % (Auto) (0.8-7.0) Baso % (Auto) (0.1-1.2) % Neut # (Auto) (1.78-5.38) K/mm3 Lymph # (Auto) (1.32-3.57) K/mm3 [place] # (Auto) (0.30-0.82) K/mm3 Eos # (Auto) (0.04-0.54) K/mm3 Baso # (Auto) (0.01-0.08) K/mm3 Manual Slide Review Sodium (136-145) mEq/L Potassium (3.5-5.1) mEq/L Chloride (98-107) mEq/L Carbon Dioxide (21-32) mEq/L Anion Gap (5-15) BUN (7-18) mg/dL Creatinine (0.7-1.3) mg/dL Est Cr Clr Drug Dosing mL/min Estimated GFR (MDRD) (>60) mL/min BUN/Creatinine Ratio (14-18) Glucose (83-115) mg/dL POC Glucose 126 H 191 H (83-110) mg/dL Hemoglobin A1c (4.50-6.20) % Calcium (8.5-10.1) mg/dL Magnesium (1.8-2.4) mg/dl Total Bilirubin (0.2-1.0) mg/dL AST (15-37) U/L ALT (16-63) U/L Alkaline Phosphatase (46-116) U/L C-Reactive Protein (<1.0) mg/dL Total Protein (6.4-8.2) g/dl Albumin (3.4-5.0) g/dl Globulin gm/dL Albumin/Globulin Ratio (1-2) My[facility] Results Last 24 Hours: Microbiology 07/16/19 17:16 Aerobic Blood Culture - Preliminary Blood - Venous NO GROWTH AFTER 1 DAY Anaerobic Blood Culture - Preliminary NO GROWTH AFTER 1 DAY 07/16/19 17:37 Aerobic Blood Culture - Preliminary Blood - Venous - Lab Draw NO GROWTH AFTER 1 DAY Anaerobic Blood Culture - Preliminary NO GROWTH AFTER 1 DAY Med Orders - Current: Current Medications Acetaminophen (Tylenol) 650 mg PO Q4H PRN PRN Reason: Pain (Mild 1-3)/fever Albuterol (Proventil Neb Soln) 2.5 mg NEB Q2H PRN PRN Reason: Shortness Of Breath/wheezing Last Admin: 07/17/19 00:27 Dose: 2.5 mg Albuterol/Ipratropium (Duoneb 3.0-0.5 Mg/3 Ml) 3 ml NEB Q6HRRT [facility] Last Admin: 07/18/19 08:07 Dose: 3 ml Artificial Tears (Refresh Liquigel 1%) 0 ml EYEBOTH BID [facility] Last Admin: 07/18/19 08:59 Dose: 1 drop Aspirin (Halfprin) 81 mg PO DAILY [facility] Last Admin: 07/18/19 08:56 Dose: 81 mg Enoxaparin Sodium (Lovenox) 40 mg SUBCUT DAILY [facility] Last Admin: 07/18/19 09:00 Dose: 40 mg Gabapentin (Neurontin) 300 mg PO TID [facility] Last Admin: 07/18/19 08:56 Dose: 300 mg Hydrochlorothiazide (Hydrochlorothiazide) 25 mg PO DAILY [facility] Last Admin: 07/18/19 08:55 Dose: 25 mg Ceftriaxone Sodium 2 gm/ (Sodium Chloride) 100 mls @ 200 mls/hr IV Q24H [facility] Last Admin: 07/17/19 22:08 Dose: 200 mls/hr Azithromycin 250 mg/ Sodium (Chloride) 250 mls @ 250 mls/hr IV Q24H [facility] Last Admin: 07/17/19 22:08 Dose: 250 mls/hr Insulin Glargine (Lantus) 10 unit SUBCUT DAILY [facility] Last Admin: 07/18/19 08:59 Dose: 10 units Insulin Human Lispro (Humalog) 0 unit SUBCUT QIDACANDBED [facility]; Protocol Last Admin: 07/18/19 11:23 Dose: 1 units Losartan Potassium (Cozaar) 100 mg PO DAILY [facility] Last Admin: 07/18/19 08:57 Dose: 100 mg Melatonin (Melatonin) 9 mg PO BEDTIME PRN PRN Reason: Insomnia Pantoprazole Sodium (Protonix) 40 mg PO DAILY@0700 [facility] Last Admin: 07/18/19 06:57 Dose: 40 mg Prednisone (Prednisone) 40 mg PO WITHBREAKFAST [facility] Last Admin: 07/18/19 06:56 Dose: 40 mg Sodium Chloride (Saline Flush) 10 ml FLUSH ASDIRECTED PRN PRN Reason: Keep Vein Open Last Admin: 07/16/19 17:19 Dose: 10 ml Discontinued Medications Albuterol/Ipratropium (Duoneb 3.0-0.5 Mg/3 Ml) 3 ml NEB ONETIME ONE Stop: 07/16/19 16:56 Last Admin: 07/16/19 17:04 Dose: 3 ml Albuterol/Ipratropium (Duoneb 3.0-0.5 Mg/3 Ml) 3 ml NEB ONETIME ONE Stop: 07/16/19 19:04 Last Admin: 07/16/19 19:14 Dose: 3 ml Albuterol/Ipratropium (Duoneb 3.0-0.5 Mg/3 Ml) 3 ml NEB Q6H [facility] Last Admin: 07/17/19 22:17 Dose: Not Given Artificial Tears (Refresh Liquigel 1%) 0 ml EYEBOTH ONETIME ONE Stop: 07/17/19 11:31 Last Admin: 07/17/19 11:43 Dose: 1 drop Azithromycin (Zithromax) Confirm Administered Dose 500 mg .ROUTE .STK-MED ONE Stop: 07/17/19 21:54 Last Admin: 07/17/19 22:10 Dose: Not Given Magnesium Sulfate/Dextrose 1 (gm/ Premix) 100 mls @ 100 mls/hr IV ONETIME ONE Stop: 07/16/19 17:55 Last Admin: 07/16/19 17:25 Dose: 100 mls/hr Azithromycin 500 mg/ Sodium (Chloride) 250 mls @ 250 mls/hr IV ONETIME ONE Stop: 07/16/19 23:16 Last Admin: 07/16/19 22:39 Dose: 250 mls/hr Methylprednisolone Sodium Succinate (Solu-Medrol) 125 mg IVPUSH ONETIME ONE Stop: 07/16/19 16:56 Last Admin: 07/16/19 17:18 Dose: 125 mg Non-Formulary Medication (Propylene Glycol/Peg 400 [Lubricant 0.3%-0.4% Eye Drops]) 15 ml EYEBOTH BID [facility] Last Admin: 07/17/19 11:31 Dose: Not Given - Exam Quality Assessment: Supplemental Oxygen General: Alert, Oriented HEENT: Pupils Equal, Mucous Membr. Moist/[place] Neck: Supple Lungs: Normal Respiratory Effort, Wheezing Cardiovascular: Regular Rate, Regular Rhythm GI/Abdominal Exam: Normal Bowel Sounds, No Distention Back Exam: Normal Inspection Extremities: Normal Inspection, Non-Tender, No Pedal Edema Skin: Warm, Dry, Intact Psy/Mental Status: Alert, Normal Affect, Normal Mood Sepsis Event Note - Evaluation Sepsis Screening Result: No Definite Risk - Focused Exam Vital Signs: Vital Signs Temp Pulse Resp BP Pulse Ox Pulse Ox Pulse Ox 07/18/19 11:15 98.1 F 79 24 H 123/79 95 07/18/19 08:57 138/71 88 L 07/18/19 08:08 95 07/18/19 08:04 97.0 F 75 16 138/71 100 07/18/19 05:36 98.2 F 80 13 122/67 96 07/18/19 03:38 92 L Date Exam was Performed: 07/18/19 Time Exam was Performed: 13:43 - Problem List Review Problem List Initiated/Reviewed/Updated: Yes - My Orders Last 24 Hours: My Active Orders 07/17/19 21:00 Azithromycin [Zithromax] 250 mg Sodium Chloride 0.9% [Normal Saline] 250 ml IV Q24H Carboxymethylcellulose Sodium [Refresh Liquigel 1%] 0 ml EYEBOTH BID - Plan Plan:: Assessment * Bronchitis with reactive airway disease and hypoxemia * Rocephin and azithromycin * Nothing acute on chest x-ray. * Normal CBC and lactic acid * Blood cultures pending * Prednisone 40 mg daily * Quit smoking 20 years ago, [id number] history prior * On 1 L nasal cannula * Increase in white count secondary to steroid effect * Type 2 diabetes * Blood sugars improved on Lantus 10 units daily. * Worsening blood sugars secondary to steroid. * Holding metformin * Globin A1c 6.7 * Hypertension * Blood pressure well controlled * Home meds: Losartan 100 mg daily and HCTZ 25 mg daily, Plan * Admit to medical floor * DuoNeb every 6 hours * Albuterol every 2 hours as needed * Continue ceftriaxone and azithromycin * Continue prednisone 40 mg daily * Lantus 10 units daily * Monitor fingerstick blood sugar 4 times daily * Sliding scale insulin * Incentive spirometry continued * FiO2 to keep SPO2 greater than 90% * VTE prophylaxis with Lovenox * CODE STATUS: Full code * Anticipated discharge in 1 to 2 days when off of O2.
[2019-07-18] MEDS: cefTRIAXone 2 GM in Sodium Chloride 0.9% 100 ML IV SCH (18:17)
[2019-07-18] MEDS ORDERED: Azithromycin 250 MG Tab PO SCH (21:00)
[2019-07-19] MEDS: Albuterol/Ipratropium 3.0-0.5 MG/3 ML Neb Soln NEB SCH (03:05)
[2019-07-19] MEDS: predniSONE 20 MG Tab PO SCH (06:08)
[2019-07-19] MEDS: Pantoprazole 40 MG Tab.CR PO SCH (06:08)
[2019-07-19] MEDS: Insulin Lispro 100 Units/ML 3 ML Vial SUBCUT SCH ×2 (06:10→12:40)
[2019-07-19] MEDS ORDERED: Albuterol 6.7 GM Inhaler INH PRN (08:31)
--- NOTE | 2019-07-19 08:54 | PCM.PN ---
- General Info Date of Service: 07/19/19 Admission Dx/Problem (Free Text): Admission Diagnosis/Problem Admission Diagnosis/Problem Hypoxia Subjective Update: Patient is doing better, but still requires oxygen. - Review of Systems General: Reports: No Symptoms HEENT: Reports: No Symptoms Pulmonary: Reports: Shortness of Breath, Cough Cardiovascular: Reports: No Symptoms Gastrointestinal: Reports: No Symptoms Musculoskeletal: Reports: No Symptoms - Patient Data Vitals - Most Recent: Last Vital Signs Temp 98.2 F 07/19/19 04:04 Pulse 84 07/19/19 04:04 Resp 19 07/19/19 04:04 BP 115/65 07/19/19 04:04 Pulse Ox 94 L 07/19/19 06:39 Weight - Most Recent: 229 lb 8 oz I&O - Last 24 Hours: Intake & Output 07/18/19 07/19/19 07/19/19 22:59 06:59 14:59 Intake Total 1080 750 Output Total 1825 1850 Balance -745 -1100 Lab Results Last 24 Hours: Laboratory Results - last 24 hr 07/17/19 07/18/19 07/18/19 Range/Units 00:50 11:14 16:56 POC Glucose 191 H 195 H (83-110) mg/dL Adenovirus (PCR) Not detected (Not Detected) B. pertussis DNA (PCR) Not detected (Not Detected) B.parapertussis DNA PCR Not detected (Not Detected) C. pneumoniae DNA (PCR) Not detected (Not Detected) Coronavirus (PCR) Not detected (Not Detected) Human Metapneumovir PCR Not detected (Not Detected) Influenza A (RT-PCR) Not detected (Not Detected) Influenza B (RT-PCR) Not detected (Not Detected) M. pneumoniae (PCR) Not detected (Not Detected) Parainfluen 1,2,3,4 PCR Not detected (Not Detected) RSV (PCR) Detected H (Not Detected) Entero/Rhino (PCR) Not detected (Not Detected) 07/18/19 07/19/19 Range/Units 20:20 06:06 POC Glucose 170 H 124 H (83-110) mg/dL Adenovirus (PCR) (Not Detected) B. pertussis DNA (PCR) (Not Detected) B.parapertussis DNA PCR (Not Detected) C. pneumoniae DNA (PCR) (Not Detected) Coronavirus (PCR) (Not Detected) Human Metapneumovir PCR (Not Detected) Influenza A (RT-PCR) (Not Detected) Influenza B (RT-PCR) (Not Detected) M. pneumoniae (PCR) (Not Detected) Parainfluen 1,2,3,4 PCR (Not Detected) RSV (PCR) (Not Detected) Entero/Rhino (PCR) (Not Detected) Mykel Results Last 24 Hours: Microbiology 07/16/19 17:16 Aerobic Blood Culture - Preliminary Blood - Venous Gram Positive Rods Anaerobic Blood Culture - Preliminary NO GROWTH AFTER 2 DAYS 07/16/19 17:37 Aerobic Blood Culture - Preliminary Blood - Venous - Lab Draw NO GROWTH AFTER 2 DAYS Anaerobic Blood Culture - Preliminary NO GROWTH AFTER 2 DAYS Med Orders - Current: Current Medications Acetaminophen (Tylenol) 650 mg PO Q4H PRN PRN Reason: Pain (Mild 1-3)/fever Albuterol (Proventil Neb Soln) 2.5 mg NEB Q2H PRN PRN Reason: Shortness Of Breath/wheezing Last Admin: 07/17/19 00:27 Dose: 2.5 mg Albuterol (Proventil Hfa) 0 gm INH Q4H PRN PRN Reason: sob/wheezing Artificial Tears (Refresh Liquigel 1%) 0 ml EYEBOTH BID [facility] Last Admin: 07/18/19 20:52 Dose: 1 drop Aspirin (Halfprin) 81 mg PO DAILY [facility] Last Admin: 07/18/19 08:56 Dose: 81 mg Azithromycin (Zithromax) 250 mg PO Q24H [facility] Last Admin: 07/18/19 20:52 Dose: 250 mg Enoxaparin Sodium (Lovenox) 40 mg SUBCUT DAILY [facility] Last Admin: 07/18/19 09:00 Dose: 40 mg Gabapentin (Neurontin) 300 mg PO TID [facility] Last Admin: 07/18/19 20:52 Dose: 300 mg Hydrochlorothiazide (Hydrochlorothiazide) 25 mg PO DAILY [facility] Last Admin: 07/18/19 08:55 Dose: 25 mg Ceftriaxone Sodium 2 gm/ (Sodium Chloride) 100 mls @ 200 mls/hr IV Q24H [facility] Last Admin: 07/18/19 18:17 Dose: 200 mls/hr Insulin Glargine (Lantus) 10 unit SUBCUT DAILY [facility] Last Admin: 07/18/19 08:59 Dose: 10 units Insulin Human Lispro (Humalog) 0 unit SUBCUT QIDACANDBED [facility]; Protocol Last Admin: 07/19/19 06:10 Dose: Not Given Losartan Potassium (Cozaar) 100 mg PO DAILY [facility] Last Admin: 07/18/19 08:57 Dose: 100 mg Melatonin (Melatonin) 9 mg PO BEDTIME PRN PRN Reason: Insomnia Pantoprazole Sodium (Protonix) 40 mg PO DAILY@0700 [facility] Last Admin: 07/19/19 06:08 Dose: 40 mg Prednisone (Prednisone) 40 mg PO WITHBREAKFAST [facility] Last Admin: 07/19/19 06:08 Dose: 40 mg Sodium Chloride (Saline Flush) 10 ml FLUSH ASDIRECTED PRN PRN Reason: Keep Vein Open Last Admin: 07/16/19 17:19 Dose: 10 ml Discontinued Medications Albuterol/Ipratropium (Duoneb 3.0-0.5 Mg/3 Ml) 3 ml NEB ONETIME ONE Stop: 07/16/19 16:56 Last Admin: 07/16/19 17:04 Dose: 3 ml Albuterol/Ipratropium (Duoneb 3.0-0.5 Mg/3 Ml) 3 ml NEB ONETIME ONE Stop: 07/16/19 19:04 Last Admin: 07/16/19 19:14 Dose: 3 ml Albuterol/Ipratropium (Duoneb 3.0-0.5 Mg/3 Ml) 3 ml NEB Q6H [facility] Last Admin: 07/17/19 22:17 Dose: Not Given Albuterol/Ipratropium (Duoneb 3.0-0.5 Mg/3 Ml) 3 ml NEB Q6HRRT [facility] Last Admin: 07/19/19 03:05 Dose: 3 ml Artificial Tears (Refresh Liquigel 1%) 0 ml EYEBOTH ONETIME ONE Stop: 07/17/19 11:31 Last Admin: 07/17/19 11:43 Dose: 1 drop Azithromycin (Zithromax) Confirm Administered Dose 500 mg .ROUTE .STK-MED ONE Stop: 07/17/19 21:54 Last Admin: 07/17/19 22:10 Dose: Not Given Magnesium Sulfate/Dextrose 1 (gm/ Premix) 100 mls @ 100 mls/hr IV ONETIME ONE Stop: 07/16/19 17:55 Last Admin: 07/16/19 17:25 Dose: 100 mls/hr Azithromycin 500 mg/ Sodium (Chloride) 250 mls @ 250 mls/hr IV ONETIME ONE Stop: 07/16/19 23:16 Last Admin: 07/16/19 22:39 Dose: 250 mls/hr Azithromycin 250 mg/ Sodium (Chloride) 250 mls @ 250 mls/hr IV Q24H [facility] Last Admin: 07/17/19 22:08 Dose: 250 mls/hr Methylprednisolone Sodium Succinate (Solu-Medrol) 125 mg IVPUSH ONETIME ONE Stop: 07/16/19 16:56 Last Admin: 07/16/19 17:18 Dose: 125 mg Non-Formulary Medication (Propylene Glycol/Peg 400 [Lubricant 0.3%-0.4% Eye Drops]) 15 ml EYEBOTH BID [facility] Last Admin: 07/17/19 11:31 Dose: Not Given - Exam Quality Assessment: Supplemental Oxygen General: Alert, Oriented HEENT: Pupils Equal, Mucous Membr. Moist/[place]: Supple Lungs: Normal Respiratory Effort, Wheezing (Bibasilar) Cardiovascular: Regular Rate, Regular Rhythm GI/Abdominal Exam: Normal Bowel Sounds, Soft, No Organomegaly, No Distention Back Exam: Normal Inspection Sepsis Event Note - Evaluation Sepsis Screening Result: No Definite Risk - Focused Exam Vital Signs: Vital Signs Temp Pulse Resp BP Pulse Ox Pulse Ox Pulse Ox 07/19/19 06:39 94 L 07/19/19 04:04 98.2 F 84 19 115/65 90 L 07/19/19 03:06 91 L 07/18/19 23:45 97.5 F 84 20 151/70 H 94 L 07/18/19 21:50 90 L 07/18/19 21:45 81 L Date Exam was Performed: 07/19/19 Time Exam was Performed: 08:48 - Problem List & Annotations (1) RSV bronchitis SNOMED Code(s): 93496587 Code(s): J20.5 - ACUTE BRONCHITIS DUE TO RESPIRATORY SYNCYTIAL VIRUS Status : Acute Current Visit: Yes (2) Hypoxia SNOMED Code(s): 450054806 Code(s): R09.02 - HYPOXEMIA Status: Acute Current Visit: Yes (3) Asthma exacerbation SNOMED Code(s): 644153251 Code(s): J45.901 - UNSPECIFIED ASTHMA WITH (ACUTE) EXACERBATION Status: Acute Current Visit: Yes Qualifiers: Asthma severity: severe Asthma persistence: persistent Qualified Code(s) : J45.51 - Severe persistent asthma with (acute) exacerbation - Problem List Review Problem List Initiated/Reviewed/Updated: Yes - My Orders Last 24 Hours: My Active Orders 07/18/19 21:00 Azithromycin [Zithromax] 250 mg PO Q24H 07/19/19 08:31 Albuterol [Proventil HFA] See Dose Instructions INH Q4H PRN 07/19/19 08:32 RT Post Treatment Assessment [RC] Click to Edit RT Pre-Treatment Assessment [RC] Click to Edit 07/19/19 08:44 CULTURE BLOOD [BC] Routine - Plan Plan:: Assessment * RSV bronchitis with exacerbation of asthma and hypoxemia * Rocephin and azithromycin * Nothing acute on chest x-ray. Chronic changes noted * Normal CBC and lactic acid * Blood cultures pending -gram-positive rods likely contaminant * Prednisone 40 mg daily * Quit smoking 20 years ago, 14-[id number]-[id number] history prior * On 1 L nasal cannula * Increase in white count secondary to steroid effect * Blood culture positive for 1 out of 4 tubes gram-positive rods likely contaminant * Type 2 diabetes * Blood sugars improved on Lantus 10 units daily. * Worsening blood sugars secondary to steroid. * Holding metformin * Globin A1c 6.7 * Hypertension * Blood pressure well controlled * Home meds: Losartan 100 mg daily and HCTZ 25 mg daily, Plan * Discharge home * Albuterol MDIevery 2 hours as needed * Switch to cefdinir and azithromycin * Continue prednisone 40 mg daily for total of 5 days * Repeat blood cultures prior to discharge * Restart home meds (metformin) for diabetes as outpatient * Monitor blood sugars at home * Discharge on home O2 * FiO2 to keep SPO2 greater than 90% * Continue incentive spirometry * VTE prophylaxis with Lovenox * CODE STATUS: Full code * Anticipated discharge in 1 to 2 days when off of O2.
--- NOTE | 2019-07-19 09:09 | PCM.DCSUM1 ---
Discharge Summary - Hospital Course HPI Initial Comments: Patient presented to the emergency room with a chief complaint of difficulty breathing. He states that he could not breathe yesterday and started developing a whitish productive cough. He has a history of some kind of reactive airway disease, but has not had any issues for years and is not taking any medication or inhalers for it. He denies any fever or chills. He stopped smoking 20 years ago and had a [id number] history. When he presented to the emergency room he had oxygen saturations of 63%. Denies any chest pain, orthopnea, or PND. He recently had injections in his eye but he does not know the name of the condition. Patient denies any recent weight gain or loss. Denies any close contacts with respiratory infections. In the emergency room chest x-ray showed nothing acute. A lobulated left hemidiaphragm was seen and bibasilar lung markings that are mildly increased which appear to be chronic. Nebulizers and oxygen improved his oxygenation and symptoms. White blood cell count was 8.37 with a C-reactive protein of 3.9. proBNP was normal at 421. Lactic acid was 1.4. Patient was treated with Rocephin and transferred to the floor on 4 L nasal cannula. Diagnosis: Stroke: No - Discharge Data Discharge Date: 07/19/19 Discharge Disposition: Home, Self-Care 01 Condition: Good - Referral to Home Health Primary Care Physician: Micah Langley MD - Discharge Diagnosis/Problem(s) (1) RSV bronchitis SNOMED Code(s): 57625623 ICD Code: J20.5 - ACUTE BRONCHITIS DUE TO RESPIRATORY SYNCYTIAL VIRUS Status: Acute Current Visit: Yes (2) Hypoxia SNOMED Code(s): 894535218 ICD Code: R09.02 - HYPOXEMIA Status: Acute Current Visit: Yes (3) Asthma exacerbation SNOMED Code(s): 021830880 ICD Code: J45.901 - UNSPECIFIED ASTHMA WITH (ACUTE) EXACERBATION Status: Acute Current Visit: Yes Qualifiers: Asthma severity: severe Asthma persistence: persistent Qualified Code(s) : J45.51 - Severe persistent asthma with (acute) exacerbation - Patient Summary/Data Hospital Course: Patient was admitted on July 16, 2023 secondary to hypoxemia and shortness of breath. Patient had bronchitis and reactive airway disease and was placed on oxygen. He was started on ceftriaxone and azithromycin. Blood cultures after 51 hours grew out gram-positive rods in 1 out of 2 of 4 tubes and it was consistent with contamination. Viral panel did come back positive for RSV. Patient was placed on prednisone secondary to his reactive airway disease and hypoxemia and he was controlled with insulin while hospitalized. Patient will be discharged on 1 more day of prednisone and will check his blood sugars at discharge. He will restart his metformin at discharge. Patient will also go home on cefdinir and Zithromax. Follow-up blood cultures were drawn and his primary care provider Dr. Langley will follow up on blood culture results. Patient will also be sent home on 1 to 2 L FiO2 secondary to hypoxemia. - Patient Instructions Diet: Heart Healthy Diet Activity: As Tolerated Driving: Do Not Drive Showering/Bathing: May Shower Other/Special Instructions: Follow up with PCP early next week. Check blood sugars at least twice a day over the next few days. If blood sugars stay above 250 contact your doctor or return to the ER. - Discharge Plan *PRESCRIPTION DRUG MONITORING PROGRAM REVIEWED*: No *COPY OF PRESCRIPTION DRUG MONITORING REPORT IN PATIENT RAVEN: No Prescriptions/Med Rec: Albuterol [Proventil HFA] 2 puff INH Q4H PRN #1 inhaler PRN Reason: sob/wheezing Azithromycin [Zithromax] 250 mg PO Q24H #2 tablet Cefdinir [Omnicef] 300 mg PO BID #14 cap predniSONE 40 mg PO WITHBREAKFAST #1 tablet Home Medications: Home Meds Aspirin [Adult Low Dose Aspirin EC] 81 mg PO DAILY 07/16/19 [History] Cholecalciferol (Vitamin D3) [Vitamin D3] 2,000 unit PO DAILY 07/16/19 [History] Losartan [Cozaar] 100 mg PO DAILY 07/16/19 [History] Omeprazole 20 mg PO DAILY 07/16/19 [History] hydroCHLOROthiazide [Hydrochlorothiazide] 25 mg PO DAILY 07/16/19 [History] metFORMIN [Glucophage] 500 mg PO BIDMEALS 07/16/19 [History] Propylene Glycol/Peg 400 [Lubricant 0.3%-0.4% Eye Drops] 1 drop EYEBOTH BID 08/04 [History] Cyanocobalamin (Vitamin B-12) [B-12] 1,000 mcg PO DAILY 07/18/19 [History] Folic Acid 1 mg PO DAILY 07/18/19 [History] Gabapentin [Neurontin] 400 mg PO TID 07/18/19 [History] Ketotifen [Ketotifen 0.025% Ophth Soln] 1 drop EYEBOTH Q12H PRN 07/18/19 [ History] Vit C/E/Zn/Coppr/Lutein/Zeaxan [Preservision Areds 2 Softgel] 1 cap PO BID 07/18 [History] Albuterol [Proventil HFA] 2 puff INH Q4H PRN #1 inhaler 07/19/19 [Rx] Azithromycin [Zithromax] 250 mg PO Q24H #2 tablet 07/19/19 [Rx] Cefdinir [Omnicef] 300 mg PO BID #14 cap 07/19/19 [Rx] predniSONE 40 mg PO WITHBREAKFAST #1 tablet 07/19/19 [Rx] Oxygen Flow Rate (L/min): 2 Maintain SpO2% greater than: 90 Patient Handouts: Sepsis, Adult Forms: ED Department Discharge Referrals: Micah Langley MD [Primary Care Provider] - - Discharge Summary/Plan Comment DC Time >30 min.: Yes Discharge Summary/Plan Comment: Discharged home in good condition. 1 to 2 L nasal cannula O2. Cefdinir and azithromycin as above. Prednisone 40 mg 1 tab tomorrow morning and then stop. Follow blood sugars at least twice a day. Follow-up with primary care provider early next week or if blood sugars are poorly controlled earlier. - Patient Data Vitals - Most Recent: Last Vital Signs Temp 98.2 F 07/19/19 04:04 Pulse 84 07/19/19 04:04 Resp 19 07/19/19 04:04 BP 115/65 07/19/19 04:04 Pulse Ox 91 L 07/19/19 08:55 Weight - Most Recent: 229 lb 8 oz I&O - Last 24 hours: Intake & Output 07/18/19 07/19/19 07/19/19 22:59 06:59 14:59 Intake Total 1080 750 Output Total 182 1850 Balance -745 -1100 Lab Results - Last 24 hrs: Laboratory Results - last 24 hr 07/17/19 07/18/19 07/18/19 Range/Units 00:50 11:14 16:56 POC Glucose 191 H 195 H (83-110) mg/dL Adenovirus (PCR) Not detected (Not Detected) B. pertussis DNA (PCR) Not detected (Not Detected) B.parapertussis DNA PCR Not detected (Not Detected) C. pneumoniae DNA (PCR) Not detected (Not Detected) Coronavirus (PCR) Not detected (Not Detected) Human Metapneumovir PCR Not detected (Not Detected) Influenza A (RT-PCR) Not detected (Not Detected) Influenza B (RT-PCR) Not detected (Not Detected) M. pneumoniae (PCR) Not detected (Not Detected) Parainfluen 1,2,3,4 PCR Not detected (Not Detected) RSV (PCR) Detected H (Not Detected) Entero/Rhino (PCR) Not detected (Not Detected) 07/18/19 07/19/19 Range/Units 20:20 06:06 POC Glucose 170 H 124 H (83-110) mg/dL Adenovirus (PCR) (Not Detected) B. pertussis DNA (PCR) (Not Detected) B.parapertussis DNA PCR (Not Detected) C. pneumoniae DNA (PCR) (Not Detected) Coronavirus (PCR) (Not Detected) Human Metapneumovir PCR (Not Detected) Influenza A (RT-PCR) (Not Detected) Influenza B (RT-PCR) (Not Detected) M. pneumoniae (PCR) (Not Detected) Parainfluen 1,2,3,4 PCR (Not Detected) RSV (PCR) (Not Detected) Entero/Rhino (PCR) (Not Detected) ARIELLA Results - Last 24 hrs: Microbiology 07/16/19 17:16 Aerobic Blood Culture - Preliminary Blood - Venous Gram Positive Rods Anaerobic Blood Culture - Preliminary NO GROWTH AFTER 2 DAYS 07/16/19 17:37 Aerobic Blood Culture - Preliminary Blood - Venous - Lab Draw NO GROWTH AFTER 2 DAYS Anaerobic Blood Culture - Preliminary NO GROWTH AFTER 2 DAYS Med Orders - Current: Current Medications Acetaminophen (Tylenol) 650 mg PO Q4H PRN PRN Reason: Pain (Mild 1-3)/fever Albuterol (Proventil Neb Soln) 2.5 mg NEB Q2H PRN PRN Reason: Shortness Of Breath/wheezing Last Admin: 07/17/19 00:27 Dose: 2.5 mg Albuterol (Proventil Hfa) 0 gm INH Q4H PRN PRN Reason: sob/wheezing Last Admin: 07/19/19 08:55 Dose: 2 puff Artificial Tears (Refresh Liquigel 1%) 0 ml EYEBOTH BID [facility] Last Admin: 07/18/19 20:52 Dose: 1 drop Aspirin (Halfprin) 81 mg PO DAILY [facility] Last Admin: 07/18/19 08:56 Dose: 81 mg Azithromycin (Zithromax) 250 mg PO Q24H [facility] Last Admin: 07/18/19 20:52 Dose: 250 mg Enoxaparin Sodium (Lovenox) 40 mg SUBCUT DAILY [facility] Last Admin: 07/18/19 09:00 Dose: 40 mg Gabapentin (Neurontin) 300 mg PO TID [facility] Last Admin: 07/18/19 20:52 Dose: 300 mg Hydrochlorothiazide (Hydrochlorothiazide) 25 mg PO DAILY [facility] Last Admin: 07/18/19 08:55 Dose: 25 mg Ceftriaxone Sodium 2 gm/ (Sodium Chloride) 100 mls @ 200 mls/hr IV Q24H [facility] Last Admin: 07/18/19 18:17 Dose: 200 mls/hr Insulin Glargine (Lantus) 10 unit SUBCUT DAILY [facility] Last Admin: 07/18/19 08:59 Dose: 10 units Insulin Human Lispro (Humalog) 0 unit SUBCUT QIDACANDBED [facility]; Protocol Last Admin: 07/19/19 06:10 Dose: Not Given Losartan Potassium (Cozaar) 100 mg PO DAILY [facility] Last Admin: 07/18/19 08:57 Dose: 100 mg Melatonin (Melatonin) 9 mg PO BEDTIME PRN PRN Reason: Insomnia Pantoprazole Sodium (Protonix) 40 mg PO DAILY@0700 [facility] Last Admin: 07/19/19 06:08 Dose: 40 mg Prednisone (Prednisone) 40 mg PO WITHBREAKFAST [facility] Last Admin: 07/19/19 06:08 Dose: 40 mg Sodium Chloride (Saline Flush) 10 ml FLUSH ASDIRECTED PRN PRN Reason: Keep Vein Open Last Admin: 07/16/19 17:19 Dose: 10 ml Discontinued Medications Albuterol/Ipratropium (Duoneb 3.0-0.5 Mg/3 Ml) 3 ml NEB ONETIME ONE Stop: 07/16/19 16:56 Last Admin: 07/16/19 17:04 Dose: 3 ml Albuterol/Ipratropium (Duoneb 3.0-0.5 Mg/3 Ml) 3 ml NEB ONETIME ONE Stop: 07/16/19 19:04 Last Admin: 07/16/19 19:14 Dose: 3 ml Albuterol/Ipratropium (Duoneb 3.0-0.5 Mg/3 Ml) 3 ml NEB Q6H [facility] Last Admin: 07/17/19 22:17 Dose: Not Given Albuterol/Ipratropium (Duoneb 3.0-0.5 Mg/3 Ml) 3 ml NEB Q6HRRT [facility] Last Admin: 07/19/19 03:05 Dose: 3 ml Artificial Tears (Refresh Liquigel 1%) 0 ml EYEBOTH ONETIME ONE Stop: 07/17/19 11:31 Last Admin: 07/17/19 11:43 Dose: 1 drop Azithromycin (Zithromax) Confirm Administered Dose 500 mg .ROUTE .STK-MED ONE Stop: 07/17/19 21:54 Last Admin: 07/17/19 22:10 Dose: Not Given Magnesium Sulfate/Dextrose 1 (gm/ Premix) 100 mls @ 100 mls/hr IV ONETIME ONE Stop: 07/16/19 17:55 Last Admin: 07/16/19 17:25 Dose: 100 mls/hr Azithromycin 500 mg/ Sodium (Chloride) 250 mls @ 250 mls/hr IV ONETIME ONE Stop: 07/16/19 23:16 Last Admin: 07/16/19 22:39 Dose: 250 mls/hr Azithromycin 250 mg/ Sodium (Chloride) 250 mls @ 250 mls/hr IV Q24H [facility] Last Admin: 07/17/19 22:08 Dose: 250 mls/hr Methylprednisolone Sodium Succinate (Solu-Medrol) 125 mg IVPUSH ONETIME ONE Stop: 07/16/19 16:56 Last Admin: 07/16/19 17:18 Dose: 125 mg Non-Formulary Medication (Propylene Glycol/Peg 400 [Lubricant 0.3%-0.4% Eye Drops]) 15 ml EYEBOTH BID [facility] Last Admin: 07/17/19 11:31 Dose: Not Given
[2019-07-19] MEDS: Losartan 100 MG Tab PO SCH (09:55)
[2019-07-19] MEDS: Hydrochlorothiazide 25 MG Tab PO SCH (09:59)
[2019-07-19] MEDS: Aspirin 81 MG Tab.EC PO SCH (09:59)
[2019-07-19] MEDS: Gabapentin 300 MG Cap PO SCH (10:00)
[2019-07-19] MEDS: Enoxaparin 40 MG/0.4 ML Syringe SUBCUT SCH (10:01)
[2019-07-19] MEDS: Insulin Glarg,Human.Rec.Analog 100 Unit/ML SUBCUT SCH (10:02)
[2019-07-19] MEDS: Carboxymethylcellulose Sodium 1% Ophth Gel 15 ML Bottle EYEBOTH SCH (10:02)
[2019-07-19 11:14] VITALS: BP 131/73; PULSE 81
== END 2019-07-19 14:20 | disposition home or self-care (01) | DRG 202 ==
LOC: JD.ED 16:32 → JD.MS 19:36
PROVIDERS: ADMIT Family Medicine; ATTEND Family Medicine
DX: J45.51 Severe persistent asthma with (acute) exacerbation (principal); J18.9 Pneumonia, unspecified organism; H91.90 Unspecified hearing loss, unspecified ear; I10 Essential (primary) hypertension; H54.7 Unspecified visual loss; J20.5 Acute bronchitis due to respiratory syncytial virus; R53.1 Weakness; K21.9 Gastro-esophageal reflux disease without esophagitis; R09.02 Hypoxemia; E11.9 Type 2 diabetes mellitus without complications; Z85.038 Personal history of other malignant neoplasm of large intestine; Z85.828 Personal history of other malignant neoplasm of skin; Z99.81 Dependence on supplemental oxygen; Z87.891 Personal history of nicotine dependence; Z79.82 Long term (current) use of aspirin; Z79.84 Long term (current) use of oral hypoglycemic drugs; Z79.899 Other long term (current) drug therapy; Z79.2 Long term (current) use of antibiotics
CPT/HCPCS: 36415; 36600; 71045; 80053; 82803; 83605; 83880; 84484; 85025; 86140; 87040 ×2; 87804 ×2; 93005; 94640 ×2; J0696; J2930; J3475; J7050; 82962; 83036; 83735; 87486; 87581; 87632; 87798; 93010; 94761; 99284; A9270-GY; J0456; J1650; J1815-GY; J7620-GY